=== PATIENT | male | born 1985 | race Caucasian/White ===

== ENCOUNTER 2020-11-29 00:45 | Inpatient (IN) | payer OTHER ==
[~2020-11-29] VITALS: Ht 180.3 cm; Wt 97.3 kg
--- NOTE | 2020-11-29 01:02 | NUR ---
BREAK RN: [place] TRANSF[place]BD [place]. PT HAD LAPCHOLY 11/27/20 AND WAS DISCHARGED YESTERDAY. PT DENIES ANY OTHER MD HX.PT MEDICATED WITH 30 MG TORADOL, 2 MG DILAUDID AND 4 MG ZOFRAN AT [place]. PT MEDICATED WITH 100 MCG FENT BY CAITLIN SWAN. PT PLACED ON BP MONITOR AND PULSE OX. SURGICAL SITES ARE CLEAN AND APROXIMATED WITH SOME SLIGHT BRUISING. VSS. CALL LIGHT IN REACH. REPORT TO HUSEYIN AZAR
[2020-11-29] MEDS ORDERED: HYDROmorphone 1 MG/ML, 1ML INJ ONE ×3 (01:07→19:34)
--- NOTE | 2020-11-29 01:10 | NUR ---
US called by this RN to ask what time they would be able to do US so i could schedule and admin pain medications prior. US states ~ 5 minutes. will pull dilaudid and admin Addendum: 11/29/20 at 0118 by ADOUGHTY Yolande TEJEDA notified of LR infusing from [facility]. ILEANA approved these to stay running to gravity for remainder of 1L bag
--- NOTE | 2020-11-29 01:16 | NUR ---
us at bedside
[2020-11-29] MEDS ORDERED: HYDROmorphone 1 MG/ML, 1ML INJ IV ONE ×3 (01:30→10:00)
[2020-11-29] MEDS ORDERED: SODIUM CHLORIDE FLUSH 10ML SYR IVF ONE (01:30)
[2020-11-29] MEDS ORDERED: ONDANSETRON 2MG/ML, 2ML IVPush ONE (01:30)
--- NOTE | 2020-11-29 01:50 | NUR ---
patient states that pain remains 6/10 after US completed. denies nausea at this time. call marr in reach. visitor at bedside. LR infusing per verbal. call marr in reach. will continue to monitor.
--- NOTE | 2020-11-29 02:15 | NUR ---
patient unhooked himself from IVF and all VS monitoring equipment to use restroom. patient did not use call marr to notify staff of need.
--- NOTE | 2020-11-29 02:20 | NUR ---
patient made aware of need to use call marr for getting OOB, especially receiving dilaudid, as this is a high risk fall medication, and not appropriate to unhook himself from IV's. patient verbalized understanding. visitor remains at bedside. VS remain stable on RA. patient resting in bed in NAD. call marr in reach Addendum: 11/29/20 at 0240 by AQUILES mega TEJEDA made aware of fluids not being completed and reasoning. no further interventions
--- NOTE | 2020-11-29 03:05 | NUR ---
patient educated on pain management while in the hospital. patient had no further questions. dressing on lap sites are intact. tegaderms to 2 of the incision sites with scant serosanginous drainage and 2 sites with 2x2 and tegaderm.
--- NOTE | 2020-11-29 03:10 | NUR ---
report given to ethan AZAR
--- NOTE | 2020-11-29 03:27 | NUR ---
patient placed on 2L via NC at time of transfer due to patient resting in bed with eyes closed;sleeping and desatting to 84% with good pleth and waveform. O2 sat up to 96% on 2L
[2020-11-29 03:39] VITALS: BP 144/94
[2020-11-29] MEDS ORDERED: ONDANSETRON 2MG/ML, 2ML IVPush PRN (04:00)
[2020-11-29] MEDS: LACTATED RINGERS 1,000 ML IV SCH ×2 (04:11→23:30)
[2020-11-29] MEDS: morphine SULFATE 10 MG/ML, 1ML IVPush PRN ×5 (04:56→23:31)
[2020-11-29 07:49] LABS: BASOPHILS % (AUTO) 1 % (0-1); EOSINOPHILS % (AUTO) 1 % (1-7); LYMPHOCYTES % (AUTO) 15 % (22-44); MEAN CORPUSCULAR HEMOGLOBIN 31.8 pg (27.5-34.5); MEAN CORPUSCULAR HGB CONC 34.1 g/dL (33.2-36.2); MEAN PLATELET VOLUME 8.4 fL (7.4-10.4); MONOCYTES % (AUTO) 12 % (2-9); NEUTROPHILS % (AUTO) 72 % (42-75); PLATELET COUNT 212 x10^3/uL (130-400); RED BLOOD COUNT 4.19 x10^6/uL (4.38-5.82); RED CELL DISTRIBUTION WIDTH 12.3 % (9.4-14.8)
[2020-11-29 07:50] LABS: MD NO
[2020-11-29 07:58] VITALS: BP 175/109
[2020-11-29 08:00] LABS: ALBUMIN 2.9 g/dL (3.4-5.0); ANION GAP 3 mmol/L (5-15); CALCIUM 9.1 mg/dL (8.5-10.1); CHLORIDE 106 mmol/L (98-107)
[2020-11-29 08:03] LABS: ALANINE AMINOTRANSFERASE 134 U/L (12-78); ALKALINE PHOSPHATASE 189 U/L (45-117); BILIRUBIN,TOTAL 1.5 mg/dL (0.2-1.0); CREATININE 0.97 mg/dL (0.7-1.3); TOTAL PROTEIN 6.5 g/dL (6.4-8.2)
[2020-11-29] MEDS: HYDROmorphone 1 MG/ML, 1ML INJ IV PRN ×2 (08:44→11:40)
[2020-11-29] MEDS ORDERED: KETOROLAC 30 MG/1 ML IVPush ONE ×2 (09:00→20:30)
[2020-11-29] MEDS ORDERED: KETOROLAC 30 MG/1 ML ONE ×2 (09:00→20:10)
[2020-11-29] MEDS ORDERED: hydrALAzine 20 MG/ML, 1ML IV PRN (09:30)
[2020-11-29 13:35] VITALS: BP 148/86
[2020-11-29] MEDS ORDERED: HYDROmorphone 2 MG/ML, 1ML ONE (14:22)
[2020-11-29] MEDS ORDERED: HYDROmorphone 1 MG/ML, 1ML INJ IV PRN (14:30)
[2020-11-29] MEDS: PIPERACILLIN/TAZO/PMX 3.375GM 50 ML IV SCH ×3 (14:31→23:50)
[2020-11-29] MEDS: HYDROmorphone 2 MG/ML, 1ML IV PRN ×2 (14:31→17:41)
[2020-11-29] MEDS ORDERED: ROCURONIUM 10MG/ML,5ML ONE (15:23)
[2020-11-29] MEDS ORDERED: PROPOFOL 10 MG/ML, 20ML ONE (15:23)
[2020-11-29] MEDS ORDERED: SUCCINYLCHOLINE 20 MG/ML, 10ML ONE (15:23)
[2020-11-29] MEDS ORDERED: OMNIPAQUE 350 MG/ML, 50 ML BOTTLE ONE (17:15)
[2020-11-29] MEDS ORDERED: MIDAZOLAM 1 MG/ML, 2ML ONE (17:39)
[2020-11-29] MEDS ORDERED: FENTANYL PF 100 MCG/2ML ONE ×3 (17:39→19:57)
[2020-11-29] MEDS ORDERED: INDOMETHACIN 50 MG SUPP.RECT ONE (18:57)
[2020-11-29] MEDS ORDERED: INDOMETHACIN 50 MG SUPP.RECT PR ONE (19:30)
[2020-11-29] MEDS: FENTANYL PF 100 MCG/2ML IV PRN ×4 (19:35→20:05)
[2020-11-29] MEDS: HYDROmorphone 1 MG/ML, 1ML INJ IVPush PRN ×2 (20:00→20:10)
[2020-11-29 20:49] VITALS: BP 146/79
[2020-11-30 00:35] VITALS: BP 134/77
[2020-11-30] MEDS: LACTATED RINGERS 1,000 ML IV SCH ×5 (00:43→20:43)
[2020-11-30] MEDS: morphine SULFATE 10 MG/ML, 1ML IVPush PRN ×3 (02:04→20:09)
[2020-11-30 04:59] LABS: BASOPHILS % (AUTO) 0 % (0-1); EOSINOPHILS % (AUTO) 1 % (1-7); LYMPHOCYTES % (AUTO) 14 % (22-44); MEAN CORPUSCULAR HEMOGLOBIN 32.3 pg (27.5-34.5); MEAN CORPUSCULAR HGB CONC 34.6 g/dL (33.2-36.2); MEAN PLATELET VOLUME 8.4 fL (7.4-10.4); MONOCYTES % (AUTO) 10 % (2-9); NEUTROPHILS % (AUTO) 75 % (42-75); PLATELET COUNT 186 x10^3/uL (130-400); RED BLOOD COUNT 3.69 x10^6/uL (4.38-5.82); RED CELL DISTRIBUTION WIDTH 11.8 % (9.4-14.8)
[2020-11-30 05:05] LABS: ALBUMIN 2.4 g/dL (3.4-5.0); ANION GAP 3 mmol/L (5-15); CALCIUM 8.7 mg/dL (8.5-10.1); CHLORIDE 106 mmol/L (98-107)
[2020-11-30 05:06] LABS: MD NO
[2020-11-30 05:08] LABS: ALANINE AMINOTRANSFERASE 85 U/L (12-78); ALKALINE PHOSPHATASE 158 U/L (45-117); BILIRUBIN,TOTAL 2.1 mg/dL (0.2-1.0); CREATININE 0.99 mg/dL (0.7-1.3); TOTAL PROTEIN 5.6 g/dL (6.4-8.2)
[2020-11-30 06:44] VITALS: BP 128/74
[2020-11-30] MEDS: PIPERACILLIN/TAZO/PMX 3.375GM 50 ML IV SCH ×2 (07:59→16:44)
[2020-11-30 12:35] VITALS: BP 116/71
[2020-11-30] MEDS ORDERED: SENNA/DOCUSATE TABLET PO PRN (15:00)
[2020-11-30 19:27] VITALS: BP 115/67
[2020-11-30 19:49] VITALS: BP 131/72
[2020-11-30] MEDS ORDERED: SIMETHICONE 125 MG CHEW TAB PO PRN (20:30)
[2020-12-01 00:08] VITALS: BP 134/77
[2020-12-01] MEDS: HYDROcodone/APAP 5/325 TABLET PO PRN ×3 (00:11→16:47)
[2020-12-01] MEDS: PIPERACILLIN/TAZO/PMX 3.375GM 50 ML IV SCH ×4 (00:11→23:48)
[2020-12-01 06:01] LABS: BASOPHILS % (AUTO) 1 % (0-1); EOSINOPHILS % (AUTO) 3 % (1-7); LYMPHOCYTES % (AUTO) 26 % (22-44); MEAN CORPUSCULAR HEMOGLOBIN 31.8 pg (27.5-34.5); MEAN CORPUSCULAR HGB CONC 33.8 g/dL (33.2-36.2); MEAN PLATELET VOLUME 8.5 fL (7.4-10.4); MONOCYTES % (AUTO) 13 % (2-9); NEUTROPHILS % (AUTO) 57 % (42-75); PLATELET COUNT 222 x10^3/uL (130-400); RED BLOOD COUNT 3.62 x10^6/uL (4.38-5.82); RED CELL DISTRIBUTION WIDTH 11.9 % (9.4-14.8)
[2020-12-01 06:04] LABS: MD NO
[2020-12-01 06:06] LABS: ALBUMIN 2.1 g/dL (3.4-5.0); ANION GAP 4 mmol/L (5-15); CALCIUM 8.6 mg/dL (8.5-10.1); CHLORIDE 108 mmol/L (98-107)
[2020-12-01 06:09] LABS: ALANINE AMINOTRANSFERASE 62 U/L (12-78); ALKALINE PHOSPHATASE 152 U/L (45-117); BILIRUBIN,TOTAL 1.1 mg/dL (0.2-1.0); CREATININE 1.01 mg/dL (0.7-1.3); TOTAL PROTEIN 5.3 g/dL (6.4-8.2)
[2020-12-01 06:25] VITALS: BP 124/72
[2020-12-01] MEDS: LACTATED RINGERS 1,000 ML IV SCH ×2 (08:41→18:00)
[2020-12-01 12:08] VITALS: BP 148/91
[2020-12-01] MEDS: morphine SULFATE 10 MG/ML, 1ML IVPush PRN ×2 (15:36→16:01)
[2020-12-01] MEDS ORDERED: HYDROmorphone 1 MG/ML, 1ML INJ IVPush ONE (18:30)
[2020-12-01] MEDS: HYDROmorphone 2 MG/ML, 1ML IVPush PRN ×5 (19:00→23:48)
[2020-12-01 19:28] VITALS: BP 146/84
[2020-12-01] MEDS ORDERED: HYDROmorphone 1 MG/ML, 1ML INJ IV ONE ×3 (21:00)
[2020-12-02] MEDS ORDERED: OMNIPAQUE 350 MG/ML, 100ML BOTTLE ONE (00:13)
[2020-12-02 01:55] VITALS: BP 136/82
[2020-12-02] MEDS: HYDROmorphone 2 MG/ML, 1ML IVPush PRN ×2 (03:24→08:13)
[2020-12-02] MEDS: HYDROcodone/APAP 5/325 TABLET PO PRN (05:49)
[2020-12-02 05:51] LABS: BASOPHILS % (AUTO) 1 % (0-1); EOSINOPHILS % (AUTO) 2 % (1-7); LYMPHOCYTES % (AUTO) 17 % (22-44); MD NO; MEAN CORPUSCULAR HEMOGLOBIN 31.8 pg (27.5-34.5); MEAN CORPUSCULAR HGB CONC 34.1 g/dL (33.2-36.2); MEAN PLATELET VOLUME 8.1 fL (7.4-10.4); MONOCYTES % (AUTO) 12 % (2-9); NEUTROPHILS % (AUTO) 68 % (42-75); PLATELET COUNT 273 x10^3/uL (130-400); RED BLOOD COUNT 3.76 x10^6/uL (4.38-5.82)
[2020-12-02 05:59] LABS: ALANINE AMINOTRANSFERASE 60 U/L (12-78); ALBUMIN 2.4 g/dL (3.4-5.0); ANION GAP 7 mmol/L (5-15); CALCIUM 8.8 mg/dL (8.5-10.1); CHLORIDE 107 mmol/L (98-107); CREATININE 1.06 mg/dL (0.7-1.3)
[2020-12-02 06:02] LABS: ALKALINE PHOSPHATASE 163 U/L (45-117); BILIRUBIN,TOTAL 1.1 mg/dL (0.2-1.0); TOTAL PROTEIN 5.8 g/dL (6.4-8.2)
[2020-12-02] MEDS: PIPERACILLIN/TAZO/PMX 3.375GM 50 ML IV SCH ×3 (08:12→23:19)
[2020-12-02] MEDS: LACTATED RINGERS 1,000 ML IV SCH ×3 (08:13→23:19)
[2020-12-02] MEDS ORDERED: ACETAMINOPHEN 325 MG TABLET PO PRN (12:00)
[2020-12-02] MEDS ORDERED: POTASSIUM CHLORIDE 20 MEQ TAB.ER.PRT PO ONE (12:00)
[2020-12-02] MEDS ORDERED: IBUPROFEN 600 MG TABLET PO PRN (12:00)
[2020-12-02 13:17] VITALS: BP 130/74
[2020-12-02] MEDS: BISACODYL 10 MG SUPP PR SCH (13:27)
[2020-12-02] MEDS: LACTOBACILLUS CHEW TABLET PO SCH ×2 (15:59→22:29)
[2020-12-02 19:25] VITALS: BP 151/80
[2020-12-03 00:39] VITALS: BP 143/81
[2020-12-03 05:51] LABS: BASOPHILS % (AUTO) 1 % (0-1); EOSINOPHILS % (AUTO) 1 % (1-7); LYMPHOCYTES % (AUTO) 15 % (22-44); MD NO; MEAN CORPUSCULAR HEMOGLOBIN 31.4 pg (27.5-34.5); MEAN CORPUSCULAR HGB CONC 34.4 g/dL (33.2-36.2); MEAN PLATELET VOLUME 7.4 fL (7.4-10.4); MONOCYTES % (AUTO) 12 % (2-9); NEUTROPHILS % (AUTO) 72 % (42-75); PLATELET COUNT 272 x10^3/uL (130-400); RED BLOOD COUNT 3.95 x10^6/uL (4.38-5.82)
[2020-12-03 06:03] LABS: ALBUMIN 2.3 g/dL (3.4-5.0); ANION GAP 6 mmol/L (5-15); CALCIUM 8.9 mg/dL (8.5-10.1); CHLORIDE 106 mmol/L (98-107)
[2020-12-03 06:08] LABS: ALANINE AMINOTRANSFERASE 45 U/L (12-78); ALKALINE PHOSPHATASE 180 U/L (45-117); CREATININE 1.04 mg/dL (0.7-1.3); TOTAL PROTEIN 5.8 g/dL (6.4-8.2)
[2020-12-03] MEDS: LACTOBACILLUS CHEW TABLET PO SCH ×2 (06:21→11:28)
[2020-12-03] MEDS ORDERED: POTASSIUM CHLORIDE 20 MEQ TAB.ER.PRT PO ONE (07:00)
[2020-12-03] MEDS ORDERED: PROMETHAZINE 25 MG/ML, 1ML IM PRN (08:00)
[2020-12-03] MEDS: PIPERACILLIN/TAZO/PMX 3.375GM 50 ML IV SCH (08:08)
[2020-12-03] MEDS: BISACODYL 10 MG SUPP PR SCH (08:15)
[2020-12-03] MEDS ORDERED: SIME125C67 PO (13:35)
== END 2020-12-03 15:01 | disposition home or self-care (01) | DRG 393 ==
LOC: ED 01:15 → EDIP 03:04 → 3N 03:44 → DCLOUNGE 12-03 14:59
PROVIDERS: ADMIT Internal Medicine; ATTEND Family Medicine
PROC: 0F798DZ Dilation of Common Bile Duct with Intraluminal Device, Via Natural or Artificial Opening Endoscopic (ICD-10-PCS; 2020-11-29)
PROC: BF131ZZ Fluoroscopy of Gallbladder and Bile Ducts using Low Osmolar Contrast (ICD-10-PCS; principal; 2020-11-29 17:00)
DX: K91.89 Other postprocedural complications and disorders of digestive system (principal); K65.3 Choleperitonitis; E43 Unspecified severe protein-calorie malnutrition; Y83.8 Other surgical procedures as the cause of abnormal reaction of the patient, or of later complication, without mention of misadventure at the time of the procedure; Z68.29 Body mass index [BMI] 29.0-29.9, adult; Z20.822 Contact with and (suspected) exposure to COVID-19; Y83.6 Removal of other organ (partial) (total) as the cause of abnormal reaction of the patient, or of later complication, without mention of misadventure at the time of the procedure; Z90.49 Acquired absence of other specified parts of digestive tract; Y92.9 Unspecified place or not applicable
CPT/HCPCS: 36415; 74177; 74181; 74328; 76700; 78226; 80053; 82150; 83690; 83735; 85025; 87635; 96374; 96375; 99285; G0378; J1170; J1885; J2250; J2405; J2543; J2550; J2704; J3010; Q9967; A9537; C1769; C1894; C2625; J0330; J2270; J7120